=== PATIENT | female | born 1950 | race Caucasian/White ===

== ENCOUNTER 2020-01-10 17:25 | Emergency (ER) | payer MEDICARE, OTHER, SELFPAY ==
--- NOTE | 2020-01-10 17:31 | ED.SKABFB ---
HPI - Skin/Abscess/Foreign Bdy General Chief complaint: Skin/Abscess/Foreign Body Stated complaint: Infected Finger Time Seen by Provider: 01/10/20 17:31 Source: patient and RN notes reviewed Mode of arrival: ambulatory Limitations: no limitations History of Present Illness MD complaint: other Related Data Home Medications Medication Instructions Recorded Confirmed Adult Low Dose Aspirin 03/16/19 Calcium 500 With D 03/16/19 Cbd Oil 300 mg BID 03/16/19 Co Q10 03/16/19 Complex B 03/16/19 Magnesium 03/16/19 Ocuvite 03/16/19 digoxin 03/16/19 metoprolol succinate PO 03/16/19 rizatriptan [Maxalt] mg 03/16/19 rosuvastatin mg 03/16/19 topiramate 03/16/19 turmeric (bulk) [Curcumin] % MISCELLANEOUS 03/16/19 warfarin 03/16/19 Allergies Allergy/AdvReac Type Severity Reaction Status Date / Time levofloxacin Allergy Intermediate Hives / Verified 08/12/17 11:30 Red Face scopolamine Allergy Intermediate Stopped Verified 08/12/17 11:30 Breathing sulfamethoxazole Allergy Intermediate Hives / Verified 08/12/17 11:30 Red Face trimethoprim Allergy Intermediate Hives / Verified 08/12/17 11:30 Red Face codeine AdvReac Intermediate Nausea and Verified 08/12/17 11:30 Vomiting pantoprazole AdvReac Intermediate Headache Verified 08/12/17 11:30 Review of Systems Review of Systems: Narrative: CONSTITUTIONAL: Denies malaise, chills, sweats, or fever. CARDIOVASCULAR: Denies chest pain, palpitations, or edema. SKIN: Reports swelling, redness, tenderness to the tip of the third digit of the left hand is been there for approximately 10 days MUSCULOSKELETAL: Denies musculoskeletal pain NEUROLOGIC: Denies numbness, weakness All systems reviewed & are unremarkable except as noted in HPI and below PMFSH Past Medical History Medical History (Updated 01/10/20 @ 17:56 by Lani Bernal NP) Hypercholesterolemia Hypertension Irregular heartbeat Migraine Pacemaker Comments At time of signature, agree with nursing past medical, surgical, social and family history. There is no relevant family history pertinent to the presenting complaint Exam Narrative: Exam Narrative: GENERAL: Well-appearing, well-nourished, and in no acute distress. HEAD: Normocephalic EYES: PERRLA, conjunctivae clear NECK: Supple. CHEST: Speaks in full sentences. No respiratory distress. HEART: Regular rate and rhythm. Normal and equal peripheral pulses. EXTREMITIES: Third digit left hand has normal strength and sensation. 5/5 strength with digit flexion, extension. Range of motion normal. No clubbing, cyanosis. Skin intact. Normal digital cascade with flexion of fingers, median, ulnar and radial nerve intact. Normal sensation of each side of finger. Can perform 'okay' sign, 'cross over finger test of index and middle fingers' and 'thumbs up' sign. No scissoring. Normal thumb opposition. Good capillary refill and radial pulse. Distal capillary refill less than 3 seconds. SKIN: Warn, dry, intact, pink. Erythema, edema, tenderness noted to the tip of the third digit of the left hand, no fluctuation. Erythema and tenderness noted to the palmar aspect of the tip of the digit, however no fluctuation or abscess noted at this time NEURO: Alert and oriented x3. PSYCH: Normal mood and affect Course Course Emergency Course: Discussed with patient importance of follow-up if symptoms do not improve in the pad of the digit. Patient is aware of diagnosis, understands and agrees to treatment plan. Anticipatory guidance given. Patient agrees to follow-up as directed and is aware of reasons to seek care at the emergency department. Portions of this record may have been created with voice recognition software Vital Signs Vital signs: Reviewed. MDM - Skin/Abscess/Foreign Bdy MDM Narrative Medical decision making narrative: Exam findings show no acute concerns or changes; patient is non-toxic appearing and is in no distress. Patient is sherri
== END 2020-01-10 18:00 | disposition home or self-care (01) ==
PROVIDERS: Emergency Provider Nurse Practitioner
DX: L03.012 Cellulitis of left finger (principal); E78.00 Pure hypercholesterolemia, unspecified; I10 Essential (primary) hypertension; Z95.0 Presence of cardiac pacemaker
CPT/HCPCS: 99213; G0463